=== PATIENT | female | born 1995 | race Caucasian/White ===

== ENCOUNTER 2020-11-30 15:16 | Emergency (ER) | payer OTHER ==
[~2020-11-30 15:16] MED LIST: COLACE 100MG C100 MG PO; COMPAZINE10 MG PO; IBUPROFEN600 MG PO; LORTAB 5-325 M1 EACH PO; MACROBID 100 M100 MG PO; ONDANSETRON ODT4 MG SL; PEPCID20 MG PO; PHENERGAN 12.12.5 M1 PO; PHENERGAN 25 MG25 M1 PO; PREDNISONE5 MG PO; PRENATAL VITAM1 EAC8 PO; ZANTAC150 MG PO; ZOFRAN ODT 4 MG4 MG SL; ZOLOFT50 MG PO
== END 2020-11-30 17:00 | disposition left against medical advice (07) ==
LOC: ER1 15:16
DX: Z53.21 Procedure and treatment not carried out due to patient leaving prior to being seen by health care provider (principal)

== ENCOUNTER 2020-12-22 15:11 | Emergency (ER) | payer OTHER ==
[2020-12-22 15:48] LABS: HEMOGLOBIN 13.7 gm/dl (12.3-15.3); RED BLOOD COUNT 4.41 M/UL (4.00-5.10); WHITE BLOOD COUNT 8.5 K/UL (4.5-11.0)
[2020-12-22 16:15] LABS: BUN/CREATININE RATIO 20 (0-10)
[2020-12-22] MEDS ORDERED: ZOFRAN 4 MG TAB4 MG PO (17:03)
== END 2020-12-22 17:15 | disposition home or self-care (01) ==
LOC: ER1 15:11
PROVIDERS: Nurse Practitioner
DX: U07.1 COVID-19 (principal)
CPT/HCPCS: 80053; 83605; 84703; 85025; 99284; J7030